=== PATIENT | male | born 1960 | race Caucasian/White ===

== ENCOUNTER 2021-03-12 22:40 | Emergency (ER) | payer OTHER, SELFPAY ==
[2021-03-12 23:08] VITALS: BP 103/72; PULSE 84; RESP 18; TEMP 37.5; O2SAT 95; BMI 33.5
--- NOTE | 2021-03-12 23:37 | XRR_ITS ---
PROCEDURE INFORMATION: Exam: XR Chest Exam date and time: 03/12/2021 11:37 PM Age: 60 years old Clinical indication: Cough and fever and shortness of breath; Additional info: Covid symptoms/exposure TECHNIQUE: Imaging protocol: XR of the chest. Views: 2 views. COMPARISON: No relevant prior studies available. FINDINGS: Lungs: Unremarkable. No consolidation. Pleural spaces: Mild blunting of the posterior costophrenic angle suggesting mild bilateral pleural fluid collection. Heart/Mediastinum: Unremarkable. No cardiomegaly. Bones/joints: Postoperative metallic fixation of the cervical spine with or without metallic artifact. XR/XR chest 2V* [id number] IMPRESSION: Mild blunting of the posterior costophrenic angle suggesting mild bilateral pleural fluid collection. Radiation Dose CTDIVOL = (mGy): DLP = (mGy-cm)
[2021-03-13 00:02] LABS: Basophils % 0.4 %; Hematocrit 49.6 % (42.0-52.0); Hemoglobin 16.8 g/dL (11.7-16.6); Lymphocytes # 1.2 10^3/uL (0.8-4.8); Lymphocytes % 22.7 %; Mean Corpuscular HGB Conc 33.9 g/dL (30.0-36.0); Mean Corpuscular Hemoglobin 30.8 pg (28.0-34.0); Mean Platelet Volume 10.8 fL (7.4-10.4); Monocytes # 0.7 10^3/uL (0.2-0.9); Monocytes % 12.7 %; Neutrophils # 3.48 10^3/uL (1.8-7.7); Nucleated Red Blood Cells % 0 %; Platelet Count 128 10^3/cmm (130-400); Red Blood Count 5.45 10^6/uL (4.1-5.3); Red Cell Distribution Width 12.2 % (12.1-15.1); White Blood Count 5.4 10^3/uL (4.0-10.0)
[2021-03-13 00:05] LABS: Lactic Sepsis W/Reflex 0.9 mmol/L (0.5-2.2)
[2021-03-13 00:10] LABS: Alanine Aminotransferase 24 U/L (0-41); Albumin Level 3.7 g/dL (3.5-5.2); Alkaline Phosphatase 57 IU/L (40-130); Anion Gap 15.6 (5-19); Aspartate Amino Transferase 28 U/L (0-40); Blood Urea Nitrogen 18 mg/dL (6-20); C Reactive Protein 6.5 mg/L (0.0-4.9); Calcium 8.5 mg/dL (8.5-10.5); Carbon Dioxide 21 mmol/L (22-29); Chloride 105 mmol/L (98-107); Globulin 3.1 g/dL (1.3-4.6); Glomerular Filtration Rate 99.3 mL/min (90-130); Glucose 121 mg/dL (65-115); Osmolality Calculated 289 mOsm/kg (285-295); Potassium 3.6 mmol/L (3.5-5.1); Sodium 138 mmol/L (136-145); Total Bilirubin 0.5 mg/dL (0.15-1.2); Total Protein 6.8 g/dL (6.6-8.7)
[2021-03-13 00:15] LABS: SARS Covid-2 Antigen Positive (Negative)
--- NOTE | 2021-03-13 01:15 | W.ED.COVID ---
Documented by User: ANALILIA Davis 03/13/21 02:34 HPI - COVID General: Chief Complaint: COVID symptoms Stated Complaint: Covid Symtoms Time Seen by Provider: 03/13/21 01:15 Triage information: No fever, cough or shortness of breath. No known COVID + exposure last 14 days History of Present Illness: HPI Narrative: Patient comes in for illness for 1 week. Patient states that since last Thursday he has been ill with fever. Family brought him in tonight due to low blood pressure and weakness. Patient has had not been seen or treated for his COVID-19 at this time. Family was planning on patient to be seen tomorrow in order to get monoclonal antibody therapy. Patient is a healthy adult male with no routine medications. Only treatments patient has had for a fusion in his neck. COVID 19 common symptoms: positive fever(s) COVID Results: SARS-CoV-2 Antigen (Rapid) Positive (Negative) H 03/12/21 23:10 03/12/21 Review of Systems General: Reports: 10 or more systems reviewed and unremarkable except in HPI and below Const: Reports: fever(s) and malaise Physical Exam Const: COMMON NORMALS: no acute distress and patient oriented x3 GENERAL APPEARANCE: cooperative HENMT: COMMON NORMALS: normocephalic and Normal external nose present HEAD & SCALP: normal to inspection and normocephalic NOSE: Normal external nose present MOUTH: Normal oral and palatal mucosa present THROAT: posterior oropharynx normal Eye: GENERAL EYE: appearance normal, both eyes and all related structures Neck/C-Spine: COMMON NORMALS: full ROM Lymph: LYMPHATIC: no lymphadenopathy noted Chest: COMMONS NORMALS: normal inspection of the chest Resp: COMMON NORMALS: normal respiratory effort EFFORT & INSPECTION: Yes able to speak in complete sentences AUSCULTATION: crackles (Mild crackles bilateral bases posterior) Cardio: COMMON NORMALS: regular rate and regular rhythm RATE: regular rate RHYTHM: regular rhythm GI: COMMON NORMALS: non-tender : COMMON NORMALS: Yes no CVA tenderness BLADDER/KIDNEY EXAM: Yes no CVA tenderness Back/Pelvis: COMMON NORMALS: no CVA tenderness and thoracic and lumbar spine normal to inspection Extremity: COMMON NORMALS: normal to inspection Neuro: COMMON NORMALS: patient oriented x3 and moves all extremities Psych: COMMON NORMALS: mental status grossly normal and cooperative Skin: COMMON NORMALS: no rashes or lesions noted GENERAL SKIN EXAM: no rashes or lesions noted Course ED course: Information was reviewed with patient and female significant other in the room. They agreed to infusion of the monoclonal antibody. Patient is being infused with 2 L of IV fluids due to mild hypotension. I reviewed this with Dr. Souza who agreed to plan of care. Vital Signs: Vital signs: Vital Signs Temperature 98.2 F 03/13/21 01:28 Pulse Rate 73 03/13/21 04:09 Respiratory Rate 18 03/13/21 04:09 Blood Pressure 110/69 03/13/21 04:09 Pulse Oximetry 96 03/13/21 04:09 MDM - COVID MDM Narrative: Medical decision making narrative: 60-year-old male patient comes in today with complaints of COVID-19. Patient has been ill for about 1 week. His daughter brought him in due to him feeling more weak and having a oxygen level of 93%. On exam we note some light crackles in the bases of bilateral lower lobes of the lungs. Abdomen soft nontender. No edema is noted. Skin is warm and dry. Vital signs noted some mild hypotension ranging between 100 systolic to 82 systolic. Heart rate was regular. Respirations were 18. Differential diagnosis includes but not limited to COVID-19, pneumonia, dehydration. Chest x-ray appeared to have some mild haziness in bilateral lower lobes although no definitive infiltrates were noted. Laboratory values noted a platelet count of 128, glucose 123, potassium 3.6 and sodium 138. COVID-19 test was positive. I reviewed the exam with patient and his female significant other recommending IV fluids due to his blood pressure being mildly hypotensive. We also discussed monoclonal antibodies they agreed to treatment with antibiotics. Patient should continue with monitoring pulse oximetry and follow-up as needed. Lab Data: Labs: Lab Results 03/12/21 03/12/21 03/12/21 23:10 23:30 23:30 WBC 5.4 10^3/uL 10^3/ uL (4.0-10.0) RBC 5.45 10^6/uL H 10 ^6/uL (4.1-5.3) Hgb 16.8 g/dL H g/dL (11.7-16.6) Hct 49.6 % % (42.0-52.0) MCV 91.0 fl fl (80-94) MCH 30.8 pg pg (28.0-34.0) MCHC 33.9 g/dL g/dL (30.0-36.0) RDW 12.2 % % (12.1-15.1) Plt Count 128 10^3/cmm L 10 ^3/cmm (130-400) MPV 10.8 fL H fL (7.4-10.4) Neut % (Auto) 64.0 % % Lymph % (Auto) 22.7 % % [place] % (Auto) 12.7 % % Eos % (Auto) 0.0 % % Baso % (Auto) 0.4 % % Neut # (Auto) 3.48 10^3/uL 10^3 /uL (1.8-7.7) Lymph # (Auto) 1.2 10^3/uL 10^3/ uL (0.8-4.8) [place] # (Auto) 0.7 10^3/uL 10^3/ uL (0.2-0.9) Eos # (Auto) 0.0 10^3/uL 10^3/ uL (0.0-0.8) Baso # (Auto) 0.0 10^3/uL 10^3/ uL (0.0-0.1) Nucleated RBC % (a uto) 0 % % Nucleated RBCs # 0.0 /100WBC /100W BC Sodium 138 mmol/L mmol/L (136-145) Potassium 3.6 mmol/L mmol/L (3.5-5.1) Chloride 105 mmol/L mmol/L (98-107) Carbon Dioxide 21 mmol/L L mmol/ L (22-29) Anion Gap 15.6 (5-19) BUN 18 mg/dL mg/dL (6-20) Creatinine 0.8 mg/dL mg/dL (0.7-1.2) GFR Calculation 99.3 mL/min mL/mi n (90-130) Glucose 121 mg/dL H mg/dL (65-115) Calculated Osmolal ity 289 mOsm/kg mOsm/ kg (285-295) Lactic Acid Calcium 8.5 mg/dL mg/dL (8.5-10.5) Total Bilirubin 0.5 mg/dL mg/dL (0.15-1.2) AST 28 U/L U/L (0-40) ALT 24 U/L U/L (0-41) Alkaline Phosphata se 57 IU/L IU/L (40-130) C-Reactive Protein 6.5 mg/L H mg/L (0.0-4.9) Total Protein 6.8 g/dL g/dL (6.6-8.7) Albumin 3.7 g/dL g/dL (3.5-5.2) Globulin 3.1 g/dL g/dL (1.3-4.6) SARS-CoV-2 Ag (Rap id) Positive H (Negative) 03/12/21 23:30 WBC RBC Hgb Hct MCV MCH MCHC RDW Plt Count MPV Neut % (Auto) Lymph % (Auto) [place] % (Auto) Eos % (Auto) Baso % (Auto) Neut # (Auto) Lymph # (Auto) [place] # (Auto) Eos # (Auto) Baso # (Auto) Nucleated RBC % (a uto) Nucleated RBCs # Sodium Potassium Chloride Carbon Dioxide Anion Gap BUN Creatinine GFR Calculation Glucose Calculated Osmolal ity Lactic Acid 0.9 mmol/L mmol/L (0.5-2.2) Calcium Total Bilirubin AST ALT Alkaline Phosphata se C-Reactive Protein Total Protein Albumin Globulin SARS-CoV-2 Ag (Rap id) COVID Results: SARS-CoV-2 Antigen (Rapid) Positive (Negative) H 03/12/21 23:10 03/12/21 Discharge Plan Discharge Patient Disposition: Home Clinical Impression: COVID-19, Dehydration Condition: Stable Discharge Orders: Discharge ED (Routine); Ordered 03/13/21 Ordered By: Sanford Porras Discharge Diet: Usual diet Discharge Activity: Increase activity as tolerated Patient Instructions: Viral Syndrome (ED), Opioid Safety Activity Restrictions/Additional Instructions: Drink plenty of fluids. Activity as tolerated. Use acetaminophen and ibuprofen for pain and fever. Monitor oxygen saturation if it gets below 90% you should be reevaluated. Monitor for worsening symptoms such as increasing shortness of breath and chest pain. Follow-up with primary care as needed. Return to the ER for worsening symptoms or new concerns. Coding Level of Care Code ED [employer] Manager for [employer] Exam Comprehensive Documented by User: Mert Souza MD 03/15/21 21:44 HPI - COVID General: Chief Complaint: COVID symptoms Stated Complaint: Covid Symtoms Time Seen by Provider: 03/13/21 01:15 COVID Results: SARS-CoV-2 Antigen (Rapid) Positive (Negative) H 03/12/21 23:10 03/12/21 Course Vital Signs: Vital signs: Vital Signs Temperature 98.2 F 03/13/21 01:28 Pulse Rate 73 03/13/21 04:09 Respiratory Rate 18 03/13/21 04:09 Blood Pressure 110/69 03/13/21 04:09 Pulse Oximetry 96 03/13/21 04:09 MDM - COVID Lab Data: Labs: Lab Results 03/12/21 03/12/21 03/12/21 23:10 23:30 23:30 WBC 5.4 10^3/uL 10^3/ uL (4.0-10.0) RBC 5.45 10^6/uL H 10 ^6/uL (4.1-5.3) Hgb 16.8 g/dL H g/dL (11.7-16.6) Hct 49.6 % % (42.0-52.0) MCV 91.0 fl fl (80-94) MCH 30.8 pg pg (28.0-34.0) MCHC 33.9 g/dL g/dL (30.0-36.0) RDW 12.2 % % (12.1-15.1) Plt Count 128 10^3/cmm L 10 ^3/cmm (130-400) MPV 10.8 fL H fL (7.4-10.4) Neut % (Auto) 64.0 % % Lymph % (Auto) 22.7 % % [place] % (Auto) 12.7 % % Eos % (Auto) 0.0 % % Baso % (Auto) 0.4 % % Neut # (Auto) 3.48 10^3/uL 10^3 /uL (1.8-7.7) Lymph # (Auto) 1.2 10^3/uL 10^3/ uL (0.8-4.8) [place] # (Auto) 0.7 10^3/uL 10^3/ uL (0.2-0.9) Eos # (Auto) 0.0 10^3/uL 10^3/ uL (0.0-0.8) Baso # (Auto) 0.0 10^3/uL 10^3/ uL (0.0-0.1) Nucleated RBC % (a uto) 0 % % Nucleated RBCs # 0.0 /100WBC /100W BC Sodium 138 mmol/L mmol/L (136-145) Potassium 3.6 mmol/L mmol/L (3.5-5.1) Chloride 105 mmol/L mmol/L (98-107) Carbon Dioxide 21 mmol/L L mmol/ L (22-29) Anion Gap 15.6 (5-19) BUN 18 mg/dL mg/dL (6-20) Creatinine 0.8 mg/dL mg/dL (0.7-1.2) GFR Calculation 99.3 mL/min mL/mi n (90-130) Glucose 121 mg/dL H mg/dL (65-115) Calculated Osmolal ity 289 mOsm/kg mOsm/ kg (285-295) Lactic Acid Calcium 8.5 mg/dL mg/dL (8.5-10.5) Total Bilirubin 0.5 mg/dL mg/dL (0.15-1.2) AST 28 U/L U/L (0-40) ALT 24 U/L U/L (0-41) Alkaline Phosphata se 57 IU/L IU/L (40-130) C-Reactive Protein 6.5 mg/L H mg/L (0.0-4.9) Total Protein 6.8 g/dL g/dL (6.6-8.7) Albumin 3.7 g/dL g/dL (3.5-5.2) Globulin 3.1 g/dL g/dL (1.3-4.6) SARS-CoV-2 Ag (Rap id) Positive H (Negative) 03/12/21 23:30 WBC RBC Hgb Hct MCV MCH MCHC RDW Plt Count MPV Neut % (Auto) Lymph % (Auto) [place] % (Auto) Eos % (Auto) Baso % (Auto) Neut # (Auto) Lymph # (Auto) [place] # (Auto) Eos # (Auto) Baso # (Auto) Nucleated RBC % (a uto) Nucleated RBCs # Sodium Potassium Chloride Carbon Dioxide Anion Gap BUN Creatinine GFR Calculation Glucose Calculated Osmolal ity Lactic Acid 0.9 mmol/L mmol/L (0.5-2.2) Calcium Total Bilirubin AST ALT Alkaline Phosphata se C-Reactive Protein Total Protein Albumin Globulin SARS-CoV-2 Ag (Rap id) COVID Results: SARS-CoV-2 Antigen (Rapid) Positive (Negative) H 03/12/21 23:10 03/12/21 Discharge Plan Discharge Patient Disposition: Home Clinical Impression: COVID-19, Dehydration Condition: Stable Discharge Orders: Discharge ED (Routine); Ordered 03/13/21 Ordered By: Sanford Porras Discharge Diet: Usual diet Discharge Activity: Increase activity as tolerated Patient Instructions: Viral Syndrome (ED), Opioid Safety Activity Restrictions/Additional Instructions: Drink plenty of fluids. Activity as tolerated. Use acetaminophen and ibuprofen for pain and fever. Monitor oxygen saturation if it gets below 90% you should be reevaluated. Monitor for worsening symptoms such as increasing shortness of breath and chest pain. Follow-up with primary care as needed. Return to the ER for worsening symptoms or new concerns. Coding Level of Care Code ED [employer] Manager for [employer] Exam Comprehensive
[2021-03-13 01:24] VITALS: O2SAT 94
[2021-03-13 01:28] VITALS: BP 82/58; PULSE 68; RESP 18; TEMP 36.8; O2SAT 96
[2021-03-13] MEDS: sodium chloride 0.9% 1,000 ML 999 ML IV ×2 (01:40→03:19)
[2021-03-13 02:59] VITALS: BP 113/62; O2SAT 94
[2021-03-13 03:17] VITALS: BP 113/65; PULSE 82; O2SAT 95
[2021-03-13 04:09] VITALS: BP 110/69; PULSE 73; RESP 18; O2SAT 96
== END 2021-03-13 04:12 | disposition home or self-care (01) ==
PROVIDERS: Emergency Medicine; Emergency Provider Nurse Practitioner Family
DX: U07.1 COVID-19 (principal); E86.0 Dehydration
CPT/HCPCS: 36415; 71046; 80053; 83605; 85025; 86140; 87426; 96365; 99284; J7030